=== PATIENT | male | born 1985 ===

== ENCOUNTER 2017-12-12 19:15 | Emergency (ER) | payer SELFPAY ==
[2017-12-12 19:37] VITALS: BP 116/73; PULSE 75; RESP 18; TEMP 98.7; O2SAT 100
--- NOTE | 2017-12-12 19:52 | ED PDOC ---
Lower Extremity Pain/Injury Time Seen by Provider: 12/12/17 19:40 Chief Complaint (Nursing): Lower Extremity Problem/Injury Chief Complaint (Provider): Right Knee Injury History Per: Patient History/Exam Limitations: no limitations Onset/Duration Of Symptoms: Days (x1) Current Symptoms Are (Timing): Still Present Additional Complaint(s): 32 year old male presents to the Emergency Department with right knee injury s/ p tripping and falling last night at around 3 am. Patient went home after injury and cleaned the wound with peroxide and applied bandage. He states his last tetanus shot was 1 year ago. Patient has no other medical complaints at this time. He denies head injury or LOC. PMD: none Past Medical History Reviewed: Historical Data, Nursing Documentation, Vital Signs Vital Signs: Last Vital Signs Temp 98.7 F 12/12/17 19:31 Pulse 75 12/12/17 19:31 Resp 18 12/12/17 19:31 BP 116/73 12/12/17 19:31 Pulse Ox 100 12/12/17 19:31 - Medical History PMH: No Chronic Diseases - Surgical History Surgical History: No Surg Hx - Family History Family History: States: No Known Family Hx - Living Arrangements Living Arrangements: With Friends/Others - Social History Current smoker - smoking cessation education provided: No Alcohol: Social Drugs: Denies - Immunization History Hx Tetanus Toxoid Vaccination: Yes (last booster was 1 year ago) - Home Medications Home Medications: Ambulatory Orders Medication Instructions Recorded Amoxicillin/Clavulanate [Augmentin 1 tab PO BID #14 tab 12/12/17 875 MG-125 MG] - Allergies Allergies/Adverse Reactions: Allergies Allergy/AdvReac Type Severity Reaction Status Date / Time No Known Allergies Allergy Verified 12/12/17 19:31 Wells Criteria for PE - Wells Criteria for Pulmonary Embolism Clinical Signs and Symptoms of DVT: No P.E is #1 Diagnosis, or Equally Likely: No Heart Rate >100: No Immobilization at least 3 days;Surgery previous 4 weeks: No Previous, objectively diagnosed PE or DVT: No Hemoptysis: No Malignancy w/treatment within 6 months, or palliative: No Total Score: 0 Review of Systems ROS Statement: Except As Marked, All Systems Reviewed And Found Negative Musculoskeletal: Positive for: Leg Pain (right knee injury) Physical Exam - Reviewed Nursing Documentation Reviewed: Yes Vital Signs Reviewed: Yes - Physical Exam Appears: Positive for: Non-toxic Head Exam: Positive for: ATRAUMATIC, NORMAL INSPECTION, NORMOCEPHALIC Skin: Positive for: Normal Color, Warm. Negative for: Rash Eye Exam: Positive for: Normal appearance Extremity: Positive for: Other (3 cm "C-shaped" laceration to the right patellar region with full ROM of right knee, no active bleeding, N/V intact). Negative for: Deformity, Swelling Neurologic/Psych: Positive for: Alert, Oriented - ECG O2 Sat by Pulse Oximetry: 100 (RA) Pulse Ox Interpretation: Normal - Other Rad Right knee x-ray X-Ray: Interpreted by Me, Viewed By Me X-Ray Interpretation: lalit in place, no fx, no dis Medical Decision Making Medical Decision Making: Time: 19:55 Impression: 32 year old male with laceration to right knee Plan: Lac repair - flap laceration noted, wound is over 12 hour old. Will loosely approximate wound. X-ray right knee Augmentin initial dose Procedure note: Under sterile conditions laceration to right knee was anesthetized with 10 mL of 1% lidocaine without epinephrine, good anesthesia was achieved, wound was cleansed with normal saline and Betadine. Excess subcutaneous fat was excised, wound margins were revised and wound flap was aligned. 3 lalit were used to approximate wound edges. Good wound approximation was achieved. Wound was dressed with Neosporin and sterile gauze wrap. Neurovascular intact status post placement. Procedure was tolerated well by patient with no complications. Prescription given for Augmentin. Advised OTC NSAIDs for pain. Wound care instructions provided. Patient was referred to clinic for follow up. Crutches declined. Disposition - Clinical Impression Clinical Impression: Laceration of right knee, Knee sprain - Patient ED Disposition Is Patient to be Admitted: No Counseled Patient/Family Regarding: Studies Performed, Diagnosis, Need For Followup, Rx Given - Disposition Referrals: [facility] [Outside] Disposition: Routine/Home Disposition Time: 21:01 Condition: STABLE Additional Instructions: Keep wound clean and dry. Wash daily with soap and water and apply Neosporin once per day only. Take [id number] Tylenol or Motrin for pain. Take antibiotics as directed. Wound recheck in 2-3 days. Staple removal 10-14 days. Prescriptions: Amoxicillin/Clavulanate [Augmentin 875 MG-125 MG] 1 tab PO BID #14 tab Instructions: Laceration Repair With Stitches (DC), Knee Sprain (DC) Forms: [employer] (Italian)
[2017-12-12] MEDS ORDERED: Lidocaine 1% Inj (20ml) ONE (20:10)
[2017-12-12] MEDS ORDERED: Amoxicillin-Clav 875-125 mg Tab PO STA (20:35)
--- NOTE | 2017-12-13 08:04 | RAD ---
PROCEDURE: Right Knee Radiographs. HISTORY: trauma COMPARISON: None. FINDINGS: BONES: No acute fracture or destructive bony lesion identified. JOINTS: No subluxation or dislocation. JOINT EFFUSION: None. OTHER FINDINGS: Skin lalit are identified in the prepatellar skin with limited thickening of the soft tissues seen locally. No emphysematous soft tissue change appreciated. IMPRESSION: No acute fracture, subluxation or dislocation. Skin lalit are identified in the prepatellar skin
== END 2017-12-12 21:16 | disposition home or self-care (01) ==
LOC: H.ER 19:15
DX: S81.011A Laceration without foreign body, right knee, initial encounter (principal); S89.91XA Unspecified injury of right lower leg, initial encounter; W19.XXXA Unspecified fall, initial encounter; Y92.89 Other specified places as the place of occurrence of the external cause